=== PATIENT | male | born 1960 | race Two or more races ===

== ENCOUNTER 2023-04-06 05:08 | Inpatient (IN) | payer OTHER ==
[~2023-04-06] VITALS: Ht 170.2 cm; Wt 73.5 kg
[2023-04-06] MEDS ORDERED: FENTANYL PF 250MCG/5ML AMPUL ONE (06:11)
[2023-04-06] MEDS ORDERED: BUPIVACAINE 0.5 % PF 150 MG/30 ML VIAL ONE ×2 (06:12→06:15)
[2023-04-06] MEDS ORDERED: MIDAZOLAM HCL 2 MG/2ML VIAL ONE (06:12)
[2023-04-06] MEDS ORDERED: ANESTHESIA TRAY IN PYXIS 1 EA TRAY MC ONE (06:15)
[2023-04-06] MEDS ORDERED: POLYMYXIN B SULFATE 500,000 UNITS ONE (06:15)
[2023-04-06 06:22] VITALS: BP 114/53; TEMP 97.7; O2SAT 99
[2023-04-06] MEDS ORDERED: TRANEXAMIC ACID 1,000 MG/10 ML VIAL ONE ×2 (06:52)
[2023-04-06] MEDS ORDERED: TRANEXAMIC ACID 3,000 MG in SODIUM CHLORIDE IRRIG SOLUTION 70 ML IR ONE (07:00)
[2023-04-06] MEDS ORDERED: DOCUSATE SODIUM 250 MG CAPSULE PO PRN (08:30)
[2023-04-06] MEDS ORDERED: ACETAMINOPHEN 325 MG TABLET PO PRN (08:30)
[2023-04-06] MEDS ORDERED: SENNOSIDES 8.6 MG TABLET PO PRN (08:30)
[2023-04-06] MEDS ORDERED: HYDROCODONE/APAP 5/325MG TABLET PO PRN (09:00)
[2023-04-06] MEDS ORDERED: IV D5/0.45 NACL 1,000 ML IV PRN (09:00)
[2023-04-06] MEDS ORDERED: BISACODYL SUPP (10 MG) 10 MG/SUPP.RECT SUPP.RECT RC PRN (09:00)
[2023-04-06] MEDS ORDERED: ZOLPIDEM TARTRATE 5 MG TABLET PO PRN (09:00)
[2023-04-06] MEDS ORDERED: ONDANSETRON HCL/PF 4 MG/2 ML VIAL IV PRN (09:00)
[2023-04-06] MEDS ORDERED: CLONIDINE HCL 0.1 MG TABLET PO PRN (10:00)
[2023-04-06] MEDS ORDERED: MAG HYDROX/AL HYDROX/SIMETH 30 ML UDC PO PRN (10:00)
[2023-04-06] MEDS ORDERED: MENTHOL/CETYLPYRD (CEPACOL) 1 LOZ LOZENGE PO PRN (10:00)
[2023-04-06] MEDS ORDERED: oxyCODONE IR immediate release 5 MG PO PRN (10:00)
[2023-04-06] MEDS ORDERED: diphenhydrAMINE HCL 25 MG CAPSULE PO PRN (10:00)
[2023-04-06] MEDS ORDERED: MAGNESIUM HYDROXIDE 30 ML UDC PO PRN (10:00)
[2023-04-06] MEDS ORDERED: GLIM2TAB31 PO (10:10)
[2023-04-06] MEDS ORDERED: OMEG-166 PO (10:10)
[2023-04-06] MEDS ORDERED: LISI-768 PO (10:10)
[2023-04-06] MEDS ORDERED: GLUC1CAP30 PO (10:10)
[2023-04-06] MEDS ORDERED: METF-442 PO (10:10)
[2023-04-06] MEDS ORDERED: DAPA5TAB PO (10:10)
[2023-04-06] MEDS ORDERED: OMEP20CA15 PO (10:10)
[2023-04-06] MEDS ORDERED: ACET-907 PO (10:10)
[2023-04-06] MEDS ORDERED: MULT-260 PO (10:10)
[2023-04-06] MEDS ORDERED: DOCU100T2 PO (10:10)
[2023-04-06] MEDS: TAMSULOSIN 0.4 MG CAP.SR.24H PO SCH (10:51)
[2023-04-06] MEDS: ASPIRIN 325 MG TABLET PO SCH (10:51)
[2023-04-06] MEDS: PANTOPRAZOLE 40 MG TABLET.DR PO SCH (10:52)
[2023-04-06 12:00] VITALS: BP 122/68; TEMP 98.4; O2SAT 98
[2023-04-06] MEDS ORDERED: OMEPRAZOLE 20 MG CAPSULE.DR PO SCH (12:00)
[2023-04-06] MEDS ORDERED: DEXTROSE 50%-WATER 50 ML DISP.SYRIN IV PRN (12:00)
[2023-04-06] MEDS: BLOOD SUGAR DIAGNOSTIC 1 EACH STRIP IN SCH (12:48)
[2023-04-06] MEDS: INSULIN REGULAR, HUMAN 100 UNIT/ML 3 ML VIAL SQ PRN (13:25)
[2023-04-06 15:26] LABS: INR 1.02 (0.91-1.10); PARTIAL THROMBOPLASTIN TIME 28.7 SEC (24.3-34.3); PROTHROMBIN TIME 10.8 SECS (9.2-11.1)
[2023-04-06] MEDS: ANCEF 1 GM/50 ML D5W IV SCH (15:50)
[2023-04-06 16:00] VITALS: BP 109/62; TEMP 98.1; O2SAT 95
[2023-04-06] MEDS: oxyCODONE IR immediate release 5 MG PO PRN (16:15)
[2023-04-06] MEDS ORDERED: LISINOPRIL (10MG) 10 MG TABLET PO SCH (17:00)
[2023-04-06] MEDS ORDERED: DOCUSATE SODIUM 100 MG CAPSULE PO SCH (17:00)
[2023-04-06 18:00] LABS: HEMOGLOBIN 13.6 g/dL (13.5-17.5)
[2023-04-06 20:00] VITALS: BP 102/62; TEMP 98.1; O2SAT 97
[2023-04-06 20:45] VITALS: BP 102/62; TEMP 98.1; O2SAT 97
[2023-04-07 00:29] VITALS: BP 106/67
[2023-04-07 02:25] VITALS: BP 116/63
[2023-04-07] MEDS: HYDROMORPHONE 1 MG/1 ML DISP.SYRIN IV PRN (02:29)
[2023-04-07 05:22] VITALS: BP 113/66
[2023-04-07 06:48] LABS: BASOPHILS % (AUTO) 0.2 % (0.0-2.0); EOSINOPHILS % (AUTO) 0.3 % (0.0-6.0); HEMATOCRIT 36 % (39-51); HEMOGLOBIN 12.9 g/dL (13.5-17.5); LYMPHOCYTES # (AUTO) 2.9 K/uL (0.8-4.8); LYMPHOCYTES % (AUTO) 27.6 % (20.0-44.0); MEAN CORPUSCULAR HEMOGLOBIN 34 PG (26.0-33.0); MEAN CORPUSCULAR HGB CONC 36 g/dl (31.0-36.0); MEAN CORPUSCULAR VOLUME 95 fL (80-96); MONOCYTES # (AUTO) 1.1 K/uL (0.1-1.30); MONOCYTES % (AUTO) 10.8 % (2.0-12.0); NEUTROPHILS # (AUTO) 6.4 K/uL (1.8-8.9); NEUTROPHILS % (AUTO) 61.1 % (43.0-81.0); PLATELET COUNT (AUTO) 231 K/uL (150-450); RED BLOOD CELL COUNT(AUTO) 3.81 MIL/uL (4.5-6.0); RED CELL DISTRIBUTION WIDTH 12.9 % (11.5-15.0); WHITE BLOOD COUNT (AUTO) 10.5 K/uL (4.3-11.0)
[2023-04-07 07:12] LABS: CALCIUM, SERUM 8.2 mg/dL (8.5-10.1); CREATININE 0.7 mg/dL (0.6-1.3); MAGNESIUM 2.2 mg/dL (1.8-2.4); PHOSPHORUS 3.2 mg/dL (2.5-4.9); POTASSIUM 3.6 mmol/L (3.5-5.1)
[2023-04-07 08:00] VITALS: BP 113/62; TEMP 99.3; O2SAT 96
[2023-04-07] MEDS ORDERED: LISINOPRIL (5MG) 5 MG TABLET PO SCH (09:00)
[2023-04-07] MEDS: MULTIVITAMINS,THERAGRAN 1 UDTAB TABLET PO SCH (09:25)
[2023-04-07] MEDS: DOCUSATE SODIUM 100 MG CAPSULE PO SCH (09:25)
[2023-04-07] MEDS: GLIMEPIRIDE 1 MG TABLET PO SCH (09:25)
[2023-04-07] MEDS: DAPAGLIFLOZIN PROPANEDIOL 5 MG TABLET PO SCH (14:46)
[2023-04-07 16:00] VITALS: BP 124/72; TEMP 98.4; O2SAT 96
== END 2023-04-07 17:30 | disposition home or self-care (01) | DRG 468 ==
LOC: DS 05:08 → MED 05:17
PROVIDERS: ADMIT Nurse Practitioner Acute Care; ATTEND Nurse Practitioner Acute Care
PROC: 0SPW0JZ Removal of Synthetic Substitute from Left Knee Joint, Tibial Surface, Open Approach (ICD-10-PCS; principal; 2023-04-06)
PROC: 0SRW0JZ Replacement of Left Knee Joint, Tibial Surface with Synthetic Substitute, Open Approach (ICD-10-PCS; 2023-04-06)
PROC: 0MNP0ZZ Release Left Knee Bursa and Ligament, Open Approach (ICD-10-PCS; 2023-04-06)
PROC: 0KNR0ZZ Release Left Upper Leg Muscle, Open Approach (ICD-10-PCS; 2023-04-06)
DX: T84.033A Mechanical loosening of internal left knee prosthetic joint, initial encounter (principal); M23.8X2 Other internal derangements of left knee; E11.9 Type 2 diabetes mellitus without complications; E78.5 Hyperlipidemia, unspecified; I10 Essential (primary) hypertension; K21.9 Gastro-esophageal reflux disease without esophagitis; Z83.3 Family history of diabetes mellitus; Y83.8 Other surgical procedures as the cause of abnormal reaction of the patient, or of later complication, without mention of misadventure at the time of the procedure; M19.90 Unspecified osteoarthritis, unspecified site; Y79.2 Prosthetic and other implants, materials and accessory orthopedic devices associated with adverse incidents; Y92.009 Unspecified place in unspecified non-institutional (private) residence as the place of occurrence of the external cause; Z79.84 Long term (current) use of oral hypoglycemic drugs
CPT/HCPCS: 36415; 80048-TC; 82962-TC; 83735-TC; 84100-TC; 85025-TC; 85027-TC; 85610-TC; 85730-TC; 87081-TC; 97110-TC; 97116-TC; 97530-TC; 97760-TC; A4217; A4223; C1776; G0378; J0690; J1100; J1170; J1815; J2250; J2405; J2704; J3010; J3490; J7030; J7060